=== PATIENT | female | born 1970 | race Caucasian/White ===

== ENCOUNTER 2020-01-25 00:46 | Emergency (ER) | payer SELFPAY ==
[~2020-01-25] VITALS: Ht 162.6 cm; Wt 66.0 kg
[2020-01-25 01:29] VITALS: BP 104/67
[2020-01-25] MEDS ORDERED: ACETAMINOPHEN 325MG TABLET PO ONE (03:00)
== END 2020-01-25 04:04 | disposition home or self-care (01) ==
LOC: ER 00:46
DX: S09.8XXA Other specified injuries of head, initial encounter (principal); S00.83XA Contusion of other part of head, initial encounter; Y08.89XA Assault by other specified means, initial encounter; Y93.9 Activity, unspecified; Y92.9 Unspecified place or not applicable
CPT/HCPCS: 70486; 81025; 99285

== ENCOUNTER 2022-03-05 10:14 | Emergency (ER) | payer MEDICAID, OTHER ==
[~2022-03-05] VITALS: Ht 162.6 cm; Wt 77.0 kg
[2022-03-05] MEDS ORDERED: CEFTRIAXONE SODIUM 1 G/VIAL IM ONE (10:45)
[2022-03-05] MEDS ORDERED: CEFTRIAXONE SODIUM 500 MG/VIAL IM ONE (10:45)
[2022-03-05 11:31] LABS: CLARITY URINE CLEAR (CLEAR); COLOR URINE DARK YELLOW (YELLOW); KETONES URINE TRACE (NEGATIVE); LEUKOCYTE ESTERASE URINE 1+ (NEGATIVE); NITRITE URINE POSITIVE (NEGATIVE); OCCULT BLOOD URINE 2+ (NEGATIVE); PH URINE 5.5 (4.5-8.0); PROTEIN URINE 1+ (NEGATIVE); SPECIFIC GRAVITY URINE 1.026 (1.005-1.030)
[2022-03-05] MEDS ORDERED: AZITHROMYCIN 500 MG TABLET PO ONE (11:45)
[2022-03-05] MEDS ORDERED: SULF1TAB48 MT (12:11)
[2022-03-05] MEDS ORDERED: VALA10002 MT (12:11)
[2022-03-05] MEDS ORDERED: IBUPROFEN 600MG TABLET PO ONE (12:30)
[2022-03-05 12:59] VITALS: BP 126/83
[2022-03-08 17:06] LABS: NEISSERIA GONORRHOEAE NAA Positive (Negative)
== END 2022-03-05 13:25 | disposition home or self-care (01) ==
LOC: ER 10:16
DX: S50.01XA Contusion of right elbow, initial encounter (principal); X58.XXXA Exposure to other specified factors, initial encounter; Y93.89 Activity, other specified; Y92.9 Unspecified place or not applicable; A60.00 Herpesviral infection of urogenital system, unspecified; N76.2 Acute vulvitis; N39.0 Urinary tract infection, site not specified; Z88.0 Allergy status to penicillin; Z59.00 Homelessness unspecified
CPT/HCPCS: 81003; 81025; 87077; 87086; 87186; 87210; 87491; 87591; 96372; 99284; J0696

== ENCOUNTER 2022-06-01 23:29 | Emergency (ER) | payer MEDICAID ==
[~2022-06-01] VITALS: Ht 162.6 cm; Wt 75.0 kg
[~2022-06-01 23:29] MED LIST: SULF1TAB48 MT; VALA10002 MT
[2022-06-01] MEDS ORDERED: ONDANSETRON 4MG ODT PO STA (23:38)
[2022-06-02 00:14] LABS: BASOPHILS % 0.3 % (0.0-2.0); EOSINOPHILS % 0.9 % (0.0-5.0); HEMATOCRIT. 41.7 % (36.0-48.0); HEMOGLOBIN. 14.2 g/dL (12.0-16.0); LYMPHOCYTES % 14.2 % (20.0-50.0); MEAN CORPUSCULAR HEMOGLOBIN 35.6 pg (28.0-32.0); MEAN CORPUSCULAR VOLUME 105.1 fL (81.0-99.0); MEAN PLATELET VOLUME 7.8 fl (7.4-10.4); MONOCYTES % 7.1 % (2.0-8.0); NEUTROPHILS % 77.5 % (40.0-76.0); PLATELET 317 x1000/uL (130-400); RED BLOOD CELL COUNT 3.97 mill/uL (4.2-5.4); RED CELL DISTRIBUTION WIDTH 14.8 % (11.6-14.6)
[2022-06-02 00:22] LABS: CHLORIDE 106 mEq/L (98-107)
[2022-06-02 00:32] LABS: ETHANOL BLOOD < 10 mg/dL
[2022-06-02 04:30] VITALS: BP 133/90
[2022-06-02] MEDS ORDERED: HYDROCODONE/ACETAMINOPHEN 5/325MG TABLET PO NR (04:30)
[2022-06-02] MEDS ORDERED: ONDANSETRON 4MG ODT PO NR (04:30)
[2022-06-02] MEDS ORDERED: HYDROCODONE/ACETAMINOPHEN 5/325MG TABLET PO ONE (04:30)
== END 2022-06-02 05:15 | disposition home or self-care (01) ==
LOC: ER 23:29
DX: R11.2 Nausea with vomiting, unspecified (principal); R19.7 Diarrhea, unspecified; R10.9 Unspecified abdominal pain; Z88.0 Allergy status to penicillin
CPT/HCPCS: 36415; 80053; 80320; 83690; 85025; 99283; Q0162; G0480